=== PATIENT | female | born 1950 | race Caucasian/White ===

== ENCOUNTER → 2021-05-23 | Outpatient (CLI) | payer MEDICARE | LOC: KOH-I 14:46 | DX: R41.0 Disorientation, unspecified (principal); R53.83 Other fatigue; R44.3 Hallucinations, unspecified; R41.840 Attention and concentration deficit; G31.9 Degenerative disease of nervous system, unspecified | CPT/HCPCS: 70551 ==

== ENCOUNTER 2022-01-12 10:04 | Emergency (ER) | payer MEDICARE ==
[2022-01-12 11:07] LABS: HEMOGLOBIN 12.2 gm/dl (12.3-15.3); RED BLOOD COUNT 4.03 M/UL (4.00-5.10); WHITE BLOOD COUNT 5.5 K/UL (4.5-11.0)
[2022-01-12 11:34] LABS: BUN/CREATININE RATIO 16 (0-10)
== END 2022-01-12 16:55 | disposition home or self-care (01) ==
LOC: ER1 10:04
PROVIDERS: Emergency Medicine
DX: K52.9 Noninfective gastroenteritis and colitis, unspecified (principal); D69.6 Thrombocytopenia, unspecified; Z86.59 Personal history of other mental and behavioral disorders
CPT/HCPCS: 70450; 80053; 82550; 82553; 83874; 84484; 85025; 99284

== ENCOUNTER 2022-01-14 09:27 | Emergency (ER) | payer MEDICARE ==
[2022-01-14 10:38] LABS: HEMOGLOBIN 11.5 gm/dl (12.3-15.3); RED BLOOD COUNT 3.83 M/UL (4.00-5.10); WHITE BLOOD COUNT 6.4 K/UL (4.5-11.0)
[2022-01-14 10:56] LABS: BUN/CREATININE RATIO 18 (0-10)
== END 2022-01-15 02:55 | disposition short-term general hospital (02) ==
LOC: ER1 09:27
PROVIDERS: Emergency Medicine
DX: F41.9 Anxiety disorder, unspecified (principal); R44.1 Visual hallucinations; Z20.822 Contact with and (suspected) exposure to COVID-19; Z86.59 Personal history of other mental and behavioral disorders
CPT/HCPCS: 80053; 80307; 81001; 85025; 93005; 99285; U0002